=== PATIENT | female | born 1935 | race Caucasian/White ===

== ENCOUNTER 2018-05-26 23:49 | Emergency (ER) | payer MEDICARE ==
[~2018-05-26] VITALS: Ht 154.9 cm; Wt 63.6 kg
[2018-05-27 00:05] VITALS: Ht 154.9 cm; Wt 63.6 kg
[2018-05-27] MEDS ORDERED: GLUCOTROL ER2.5 MG (00:07)
[2018-05-27] MEDS ORDERED: LISINOPRIL2.5 MG (00:07)
[2018-05-27] MEDS ORDERED: HYDROCHLOROTH12.5 M1 (00:07)
[2018-05-27] MEDS ORDERED: PRAVACHOL20 MG (00:07)
[2018-05-27] MEDS ORDERED: BAYER CHEWABLE81 MG PO (00:07)
[2018-05-27] MEDS ORDERED: GABAPENTIN100 MG (00:08)
[2018-05-27] MEDS ORDERED: CARAFATE1 G/10 ML PO (01:47)
[2018-05-27 02:27] VITALS: BP 142/74
== END 2018-05-27 02:29 | disposition home or self-care (01) ==
LOC: D.ER 23:49
DX: S27.818A Other injury of esophagus (thoracic part), initial encounter (principal); X58.XXXA Exposure to other specified factors, initial encounter; Y93.89 Activity, other specified; Y92.019 Unspecified place in single-family (private) house as the place of occurrence of the external cause; R51 Headache